=== PATIENT | female | born 1950 | race Caucasian/White ===

== ENCOUNTER 2016-09-02 11:21 | Emergency (ER) | payer OTHER ==
[~2016-09-02 11:21] MED LIST: AMLO-39 PO; ASPI-628 PO; CALC-140 PO; CHOL200047 PO; CYAN500 PO; FUR20 PO; GLUC1CAP35 PO; HYDR25TA4 PO; LOSA25TA21 PO; LOVA40TA PO; MULT-285 PO; OMEG1CAP5 PO; RANI150T11 PO
[2016-09-02 11:36] VITALS: BP 153/78; PULSE 60; RESP 12; O2SAT 99
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
[2016-09-02 11:56] LABS: BASOPHILS % (AUTO) 0.6 % (0-3); EOSINOPHILS % (AUTO) 2.3 % (0-5); MONOCYTES % (AUTO) 8.6 % (4-12); Mean Corpuscular Hemoglobin 30.9 pg (27.0-35.0); Mean Corpuscular Volume 91.1 fL (81-100); Platelet Count 289 bil/L (150-400)
--- NOTE | 2016-09-02 12:13 | DRSVH ---
PROCEDURE: X-RAY CHEST ONE VIEW, PORTABLE ([id number]) INDICATIONS: SOB TECHNIQUE: One view of the chest was acquired. COMPARISON: [facility], , CHEST 1VW (PORTABLE), 10/21/2014, 10:32. FINDINGS: Surgical changes and devices: None. Lungs and pleura: No pleural effusions or pneumothorax. Lungs are clear. Mediastinum: Mediastinal contours appear normal. Heart size is normal. Bones and chest wall: No suspicious bony lesions. Overlying soft tissues appear unremarkable. IMPRESSION: No acute disease Dictated by: Rico De La Torre M.D. on 09/02/2016 at 12:09 Approved by: Rico De La Torre M.D. on 09/02/2016 at 12:11
[2016-09-02 12:24] LABS: TROPONIN T 0.01 ug/L (0.0-0.011)
[2016-09-02 12:35] LABS: Magnesium 2.1 mg/dL (1.6-2.6)
[2016-09-02 14:17] VITALS: BP 129/73; PULSE 61; RESP 11; O2SAT 97
== END 2016-09-02 14:15 | disposition home or self-care (01) ==
LOC: EDBD 11:21 → EDUNIT# 11:21 → SED 11:21
DX: R07.9 Chest pain, unspecified (principal); R00.0 Tachycardia, unspecified; K21.9 Gastro-esophageal reflux disease without esophagitis; E78.5 Hyperlipidemia, unspecified; I10 Essential (primary) hypertension; Z79.82 Long term (current) use of aspirin; Z88.8 Allergy status to other drugs, medicaments and biological substances